=== PATIENT | male | born 1965 | race Caucasian/White ===

== ENCOUNTER → 2016-10-02 | Outpatient (CLI) | payer OTHER | LOC: SL 20:30 | PROVIDERS: ATTEND Nurse Practitioner Family | DX: G47.10 Hypersomnia, unspecified (principal); R06.83 Snoring; G44.89 Other headache syndrome; F39 Unspecified mood [affective] disorder; I10 Essential (primary) hypertension; E66.9 Obesity, unspecified ==

== ENCOUNTER 2016-11-25 01:35 | Emergency (ER) | payer OTHER ==
[2016-11-25] MEDS ORDERED: ASPIRIN TABLET 325 MG TAB ONE (01:48)
[2016-11-25] MEDS ORDERED: NITROGLYCERIN 0.4 MG 25 EA TAB SL ONE (01:48)
[2016-11-25] MEDS: NITROGLYCERIN 0.4 MG 25 EA TAB SL ONE ×3 (02:00→02:14)
[2016-11-25] MEDS: ASPIRIN TABLET 325 MG TAB PO ONE (02:00)
[2016-11-25 02:02] VITALS: TEMP 98
--- NOTE | 2016-11-25 02:08 | ED.PDOC ---
History of Present Illness - General Chief Complaint: Respiratory Problem Stated Complaint: shortness of breath Time Seen by Provider: 11/25/16 02:05 Source: patient, RN notes reviewed, Vital Signs reviewed Exam Limitations: no limitations - History of Present Illness Initial Comments: Patient is a 51 y/o male who started having severe back pain and shortness of breath around 1900 last night. It continues to get worse. The pain is a stabbing pain. He has a history of diabetes and hypertension. He denies any chest pain. Timing/Duration: 4-6 hours Severity: moderate, severe Improving Factors: nothing Worsening Factors: other - breathing Allergies/Adverse Reactions: Allergies NO KNOWN ALLERGY Allergy (Verified 11/25/16 01:59) Home Medications: Ambulatory Orders Glipizide 5 mg PO DAILY 11/25/16 Metformin HCl 1,000 mg PO DAILY 11/25/16 Pantoprazole Sodium 40 mg PO DAILY #30 tab 11/25/16 Pioglitazone HCl [Actos] 15 mg PO DAILY 11/25/16 Sertraline HCl 25 mg PO DAILY 11/25/16 Review of Systems - Review of Systems Constitutional: States: no symptoms reported EENTM: States: no symptoms reported Respiratory: States: short of breath Cardiology: States: no symptoms reported Gastrointestinal/Abdominal: States: no symptoms reported Genitourinary: States: no symptoms reported Musculoskeletal: States: back pain Skin: States: no symptoms reported Neurological: States: no symptoms reported Endocrine: States: no symptoms reported Hematologic/Lymphatic: States: no symptoms reported All other Systems: Reviewed and Negative Past Medical History (General) - Patient Medical History Hx Seizures: No Hx Stroke: No Hx Dementia: No Hx Asthma: No Hx of COPD: No Hx Cardiac Disorders: No Hx Congestive Heart Failure: No Hx Pacemaker: No Hx Hypertension: No Hx Thyroid Disease: No Hx Diabetes: Yes Hx Gastroesophageal Reflux: No Hx Renal Disease: No Hx Cancer: No Hx of HIV: No Hx Hepatitis C: No Hx MRSA: No Surgical History: cholecystectomy - Vaccination History Hx Tetanus, Diphtheria Vaccination: No Hx Influenza Vaccination: Yes Hx Pneumococcal Vaccination: No - Social History Hx Tobacco Use: No Hx Alcohol Use: No Hx Substance Use: No Hx Substance Use Treatment: No Hx Depression: No - Female History Patient is a Female of Child Bearing Age (10 -59 yrs old): No Family Medical History - Family History Mother Family History: No Known Physical Exam - Physical Exam General Appearance: Alert, Obvious distress, Obese Eye Exam: bilateral normal Ears, Nose, Throat: hearing grossly normal, normal ENT inspection Neck: full range of motion, supple Respiratory: lungs clear, normal breath sounds, no respiratory distress, no accessory muscle use Cardiovascular/Chest: regular rate, rhythm, no edema, no gallop, no murmur Gastrointestinal/Abdominal: normal bowel sounds, non tender, soft, no organomegaly Back Exam: normal inspection, no vertebral tenderness Extremity: normal range of motion, normal inspection, no pedal edema Neurologic: alert, normal mood/affect, oriented x 3 Skin Exam: normal color, warm/dry Progress - Progress Progress: 11/25/16 02:30 After ASA 325 mg and 3 Nitro 0.4 mg, Patient's pain decreased to 3/10 and his breathing improved significantly. 11/25/16 04:01 Apparently, Patient had a large plate of barbeque and then went straight to bed. I have encouraged him to not eat for at least 2 hours prior to going to bed. I will give him a prescription for Protonix which he will take for the next 4 days, and then as needed. - Results/Orders Results/Orders: 11/25/16 11/25/16 11/25/16 01:53 02:01 02:14 Temperature 98.0 F Pulse Rate 80 Pulse Rate [ 80 80 77 left arm] Respiratory 24 22 20 Rate Blood Pressure 180/106 154/84 155/90 [Left Arm] O2 Sat by Pulse 92 L 95 96 Oximetry 11/25/16 03:00 Temperature Pulse Rate Pulse Rate [ 74 left arm] Respiratory 18 Rate Blood Pressure 150/80 [Left Arm] O2 Sat by Pulse 96 Oximetry 11/25/16 02:00 EKG STAT Laboratory Results WBC 6.6 K/mm3 (4.8-10.8) 11/25/16 01:45 RBC 4.54 M/mm3 (4.70-6.10) L 11/25/16 01:45 Hgb 14.4 gm/dL (14.0-18.0) 11/25/16 01:45 Hct 42.3 % (42.0-52.0) 11/25/16 01:45 MCV 93.3 fl (80.0-94.0) 11/25/16 01:45 MCH 31.7 pg (27.0-31.0) H 11/25/16 01:45 MCHC 34.0 g/dL (33.0-37.0) 11/25/16 01:45 RDW 13.1 % (11.5-14.5) 11/25/16 01:45 Plt Count 208 K/mm3 (130-400) 11/25/16 01:45 MPV 9.6 fl (7.40-10.4) 11/25/16 01:45 Absolute Neuts (auto) 3.70 K/uL (1.8-6.8) 11/25/16 01:45 Absolute Lymphs (auto) 1.80 K/uL (1.0-3.4) 11/25/16 01:45 Absolute Monos (auto) 0.60 K/uL (0.2-0.8) 11/25/16 01:45 Absolute Eos (auto) 0.30 K/uL (0.0-0.4) 11/25/16 01:45 Absolute Basos (auto) 0.10 K/uL (0.0-0.1) 11/25/16 01:45 Neutrophils % 56.4 % (42.0-78.0) 11/25/16 01:45 Lymphocytes % 27.9 % (20.0-50.0) 11/25/16 01:45 Monocytes % 8.8 % (2.0-9.0) 11/25/16 01:45 Eosinophils % 4.9 % (1.0-5.0) 11/25/16 01:45 Basophils % 2.0 % (0.0-2.0) 11/25/16 01:45 PT 10.7 SECONDS (9.4-12.5) 11/25/16 01:45 INR 0.950 11/25/16 01:45 PTT (SP) 28.7 SECONDS (25.1-36.5) 11/25/16 01:45 D-Dimer, Quantitative < 230 ng/mL (0-230) 11/25/16 01:45 Sodium 137 mmol/L (135-145) 11/25/16 01:45 Potassium 3.8 mmol/L (3.6-5.0) 11/25/16 01:45 Chloride 104 mmol/L (101-111) 11/25/16 01:45 Carbon Dioxide 28 mmol/L (21-31) 11/25/16 01:45 Anion Gap 8.8 (12-18) L 11/25/16 01:45 BUN 13 mg/dL (7-18) 11/25/16 01:45 Creatinine 0.99 mg/dL (0.6-1.3) 11/25/16 01:45 BUN/Creatinine Ratio 13.1 (10-20) 11/25/16 01:45 Random Glucose 209 mg/dL (70-105) H 11/25/16 01:45 Serum Osmolality 280.1 mOsm/L (275-295) 11/25/16 01:45 Calcium 8.8 mg/dL (8.4-10.2) 11/25/16 01:45 Magnesium 1.7 mg/dL (1.8-2.5) L 11/25/16 01:45 Creatine Kinase 68 IU/L (38-174) 11/25/16 01:45 CK-MB (CK-2) 0.7 ng/mL (0.0-4.4) 11/25/16 01:45 CK-MB (CK-2) % Not Reportable 11/25/16 01:45 Troponin I < 0.02 ng/mL (0.01-0.05) 11/25/16 01:45 - EKG/XRAY/CT EKG: Sinus - 78 bpm, no ST T wave changes Comments: NML axis, NML intervals, No comparison--NML sinus rhythm XRAY: chest - No acute process Departure - Departure Clinical Impression: Gastroesophageal reflux disease Qualifiers: Esophagitis presence: with esophagitis Qualified Code(s): K21.0 - Gastro- esophageal reflux disease with esophagitis Time of Disposition: 04:04 Disposition: Discharge to Home or Self Care Condition: Fair Departure Forms: ED Discharge - Pt. Copy, Patient Portal Self Enrollment Instructions: GERD Diet, Heartburn -- Overview Diet: bland diet Referrals: BRANDON JOHNSON IV, FNP [Primary Care Provider] - 1-2 Weeks Prescriptions: Pantoprazole Sodium 40 mg PO DAILY #30 tab Home Medications: Ambulatory Orders Glipizide 5 mg PO DAILY 11/25/16 Metformin HCl 1,000 mg PO DAILY 11/25/16 Pantoprazole Sodium 40 mg PO DAILY #30 tab 11/25/16 Pioglitazone HCl [Actos] 15 mg PO DAILY 11/25/16 Sertraline HCl 25 mg PO DAILY 11/25/16
--- NOTE | 2016-11-25 02:40 | RAD ---
EXAM: Single view chest. INDICATION: Chest pain. COMPARISON: Chest x-ray: None. FINDINGS: Cardiac silhouette: Unremarkable. Lita: Unremarkable. Lobar consolidation: None. Pleural effusion: None. Pneumothorax: None. Other: None. Bones: Unremarkable. Other: None. IMPRESSION: 1. No acute cardiopulmonary process. Electronically signed by: Jeffery Rose MD 11/25/2016 2:39 AM CDT
[2016-11-25] MEDS: ACETAMINOPHEN 500 MG TAB PO ONE (02:42)
[2016-11-25] MEDS: LIDOCAINE VIS-MYLANTA 30 ML UD PO ONE (03:00)
[2016-11-25 03:37] VITALS: O2SAT 96
[2016-11-25 04:56] VITALS: BP 154/87
== END 2016-11-25 03:16 | disposition home or self-care (01) ==
LOC: ER 01:35
DX: K21.0 Gastro-esophageal reflux disease with esophagitis (principal); E11.9 Type 2 diabetes mellitus without complications; I10 Essential (primary) hypertension; Z79.899 Other long term (current) drug therapy

== ENCOUNTER → 2017-05-09 | Outpatient (CLI) | payer OTHER | END | disposition home or self-care (01) | LOC: LAB.O 08:07 | PROVIDERS: ATTEND Nurse Practitioner Family | DX: Z00.00 Encounter for general adult medical examination without abnormal findings (principal); E78.5 Hyperlipidemia, unspecified ==